=== PATIENT | female | born 1990 | race American Indian/Alaskan Native ===

== ENCOUNTER 2018-11-14 05:33 | Inpatient (IN) | payer MEDICAID ==
[2018-11-14] MEDS ORDERED: NITRATEST PAPER MC ONE (09:39)
--- NOTE | 2018-11-14 09:49 | Ultrasound Report ---
ULTRASOUND BIOPHYSICAL PROFILE ULTRASOUND OB LIMITED INDICATION: well being, evaluate amniotic fluid TECHNIQUE: Transabdominal ultrasound imaging. COMPARISON: None FINDINGS: breathing movement = 2 Gross body movement = 2 tone = 2 Qualitative amniotic fluid volume = 2 Total biophysical score = 8/8 Amniotic fluid index is 12.2 cm. Presentation is cephalic. heart rate is 130 beats per minute. IMPRESSION: biophysical profile equals 8/8. Signer Name: Ghulam Ford Jr, MD Signed: 11/14/2018 9:44 AM Workstation Name: [id number]
[2018-11-14 15:01] LABS: Basophils % (Auto) 0.2 % (0.0-1.8); Eosinophils % (Auto) 0.5 % (0.0-4.3); Hematocrit 28.3 % (30.3-42.9); Hemoglobin 8.9 gm/dl (10.1-14.3); Lymphocytes # (Auto) 1.3 K/mm3 (1.2-5.4); Lymphocytes % (Auto) 15.2 % (13.4-35.0); Mean Corpuscular HGB Conc 32 % (30-34); Mean Corpuscular Volume 70 fl (79-97); Monocytes # (Auto) 0.7 K/mm3 (0.0-0.8); Monocytes % (Auto) 8.1 % (0.0-7.3); Platelet Count 204 K/mm3 (140-440); Red Blood Count 4.01 M/mm3 (3.65-5.03); Red Cell Distribution Width 18.6 % (13.2-15.2)
[2018-11-14] MEDS ORDERED: MINERAL OIL PO PRN (16:16)
[2018-11-14] MEDS ORDERED: BRETHINE IVP PRN (16:16)
[2018-11-14] MEDS ORDERED: BRETHINE SUB-Q PRN (16:16)
[2018-11-14] MEDS ORDERED: CERVIDIL VG ONE (16:16)
[2018-11-14] MEDS ORDERED: XYLOCAINE 2% INFILTRATI ONE (16:16)
[2018-11-14] MEDS ORDERED: PITOCin/NS 20 UNIT/1000ML DRIP 20 UNITS/1,000 ML BAG IV SCH (17:00)
[2018-11-14] MEDS ORDERED: STADOL IV PRN (20:51)
[2018-11-14] MEDS: LACTATED RINGERS 1,000 ML IV SCH ×2 (21:32→23:48)
[2018-11-14] MEDS ORDERED: SUBLIMAZE ONE (23:50)
[2018-11-14] MEDS ORDERED: MARCAINE 0.25% INFILTRATI ONE (23:50)
[2018-11-15] MEDS ORDERED: NARCAN 2 MG/2 ML IV PRN (00:14)
--- NOTE | 2018-11-15 00:14 | Anesthesia Consultation ---
Anesthesia Consult and Med Hx Date of service: 11/15/18 - Airway Anesthetic Teeth Evaluation: Good ROM Head & Neck: Adequate Mental/Hyoid Distance: Adequate Mallampati Class: Class II Intubation Access Assessment: Good - Pulmonary Exam CTA: Yes - Cardiac Exam Cardiac Exam: RRR - Pre-Operative Health Status ASA Pre-Surgery Classification: ASA2, Emergency Proposed Anesthetic Plan: Epidural - Pulmonary Hx Asthma: No COPD: No Hx Pneumonia: No - Endocrine Hx End Stage Renal Disease: No - Other Systems Hx Alcohol Use: No
[2018-11-15] MEDS: fentaNYL-BUPIV 2 MCG/ML-0.125% 200 MCG/100 ML BAG EPIDURAL SCH ×2 (02:08→10:13)
[2018-11-15] MEDS: LACTATED RINGERS 1,000 ML IV SCH ×2 (03:45→08:15)
[2018-11-15] MEDS ORDERED: TYLENOL PO ONE (06:24)
[2018-11-15] MEDS ORDERED: ceFAZolin 2 GM in NACL 0.9% 100 ML IV ONE (06:25)
--- NOTE | 2018-11-15 08:10 | History and Physical Report ---
History of Present Illness Date of examination: 11/15/18 Date of admission: 11/14/18 13:44 Chief complaint: I think my water broke History of present illness: Patient is a 28 year old at 40.5 weeks who presents with the complaint of Leakage of fluid and contractions. Pt was found to be having irregular contractions but with only minimal dilation. As patient continued to contract, the decision was made to keep patient for augmentation of labor. Her course was uncomplicated. All labs are negative. She is GBS negative. Past History Past Medical History: no pertinent history Past Surgical History: no surgical history Social history: single - Obstetrical History Expected Date of Delivery: 11/09/18 Actual Gestation: 40 Week(s) 6 Day(s) : 1 Medications and Allergies Allergies Allergy/AdvReac Type Severity Reaction Status Date / Time amoxicillin Allergy Hives Verified 11/15/18 06:55 Active Meds: Active Medications Butorphanol Tartrate (Stadol) 2 mg IV Q2H PRN PRN Reason: Labor Pain Last Admin: 11/14/18 21:14 Dose: 2 mg Documented by: Ephedrine Sulfate (Ephedrine Sulfate) 10 mg IV Q2M PRN PRN Reason: Hypotension Ephedrine Sulfate (Ephedrine Sulfate) 10 mg IV Q2M PRN PRN Reason: Hypotension Oxytocin/Sodium Chloride (Pitocin/Ns 20 Unit/1000ml Drip) 20 units in 1,000 mls @ 125 mls/hr IV DIRECT SOUMYA Lactated Ringer's (Lactated Ringers) 1,000 mls @ 125 mls/hr IV DIRECT SOUMYA Last Admin: 11/15/18 03:45 Dose: 125 mls/hr Documented by: Fentanyl/Bupivacaine/Sodium Chlor (Fentanyl-Bupiv 2 Mcg/Ml-0.125%) 200 mcg in 100 mls @ 12 mls/hr EPIDURAL TITR SOUMYA; Protocol Last Admin: 11/15/18 02:08 Dose: 12 mls/hr Documented by: Clindamycin HCl (Cleocin 900 Mg/50 Ml) 900 mg in 50 mls @ 100 mls/hr IV ONCE ONE; Protocol Stop: 11/15/18 08:18 Mineral Oil (Mineral Oil) 30 ml PO QHS PRN PRN Reason: Constipation Naloxone HCl (Narcan 2 Mg/2 Ml) 0.2 mg IV Q5M PRN PRN Reason: Respiratory sedation Terbutaline Sulfate (Brethine) 0.25 mg SUB-Q ONCE PRN PRN Reason: Hyperstimulation/Hypertonicity Terbutaline Sulfate (Brethine) 0.25 mg IVP ONCE PRN PRN Reason: Hyperstimulation/Hypertonicity Review of Systems All systems: negative Genitourinary: leakage of fluid, contractions - Vital Signs Vital signs: Vital Signs Pulse BP 86 111/73 11/14/18 09:52 11/14/18 09:52 Temp Pulse Resp BP Pulse Ox 99.4 F 114 H 18 124/68 99 11/15/18 04:51 11/15/18 08:02 11/15/18 07:38 11/15/18 07:51 11/15/18 08:02 - Physical Exam Breasts: Positive: deferred Cardiovascular: Regular rate, Normal S1, Normal S2 Lungs: Positive: Clear to auscultation, Normal air movement Abdomen: Positive: normal appearance, soft, normal bowel sounds. Negative: distention, tenderness Genitourinary (Female): Positive: normal external genitalia, normal perenium Vulva: both: normal Vagina: Positive: normal moisture. Negative: discharge Cervix: Negative: lesion, discharge Uterus: Positive: normal size, normal contour Adnexa: both: normal Anus/Rectum: Positive: normal perianal skin, heme negative. Negative: rectal mass, hemorrhoids Extremities: Deep Tendon Reflex Grade: Normal +2 - Obstetrical FHR: auscultation normal Cervical Dilatation: 1 Cervical Effacement Percentage: 50 station: -3 Uterine Contraction Pattern: Irregular Uterine Contraction Intensity: Moderate Results Result Diagrams: 11/14/18 14:46 Abnormal lab results 11/14/18 Range/Units 14:46 Hgb 8.9 L (10.1-14.3) gm/dl Hct 28.3 L (30.3-42.9) % MCV 70 L (79-97) fl MCH 22 L (28-32) pg RDW 18.6 H (13.2-15.2) % [place] % (Auto) 8.1 H (0.0-7.3) % Seg Neutrophils % 76.0 H (40.0-70.0) % All other labs normal. Assessment and Plan IUP at 40.5 weeks with possible ROM. Admit for labor augmentation. Place cervidil. AROM when able. Anticipate .
[2018-11-15] MEDS ORDERED: CLEOCIN 900 MG/50 mL 900 MG/50 ML BAG IV ONE (09:00)
[2018-11-15] MEDS ORDERED: PITOCin/NS 30 UNIT/500ML 30,000 MILLIUNITS/500 ML BAG IV ONE ×2 (15:06→15:09)
[2018-11-15] MEDS ORDERED: NARCAN 0.4 MG/1 ML IV PRN ×2 (15:35→19:13)
[2018-11-15] MEDS ORDERED: ZOFRAN IV PRN ×2 (15:35→19:13)
[2018-11-15] MEDS ORDERED: DILAUDID IV PRN ×2 (15:35)
[2018-11-15] MEDS ORDERED: PHENERGAN PO PRN (15:35)
[2018-11-15] MEDS ORDERED: PHENERGAN PR PRN ×2 (15:35→19:13)
--- NOTE | 2018-11-15 15:35 | Anesthesia Day of Surgery ---
Anesthesia Day of Surgery - Day of Surgery Patient Examined: Yes Patient H&P Reviewed: Yes Patient is NPO: Yes
--- NOTE | 2018-11-15 15:39 | Event Note ---
Date: 11/15/18 Pt reached 10cm and commenced pushing. appears to be in OP position and despite good maternal pushing effort, there has been no descent of the head and caput has begun to develop. Discussed options with patient including c- section. I advised patient that vaginal delivery seems unlikely. Pt would prefer . Will sign consents and proceed with surgery.
[2018-11-15] MEDS ORDERED: BICITRA ONE (15:43)
[2018-11-15] MEDS ORDERED: CLEOCIN 900 MG/50 mL 900 MG/50 ML BAG IV NR (16:00)
[2018-11-15] MEDS ORDERED: PEPCID IV ONE (16:00)
[2018-11-15] MEDS ORDERED: REGLAN IV ONE (16:00)
[2018-11-15] MEDS ORDERED: SODIUM CHLORIDE FLUSH SYRINGE 10 ML IV NR ×2 (16:00→19:13)
[2018-11-15] MEDS ORDERED: BICITRA PO ONE (16:00)
[2018-11-15] MEDS ORDERED: PITOCin/NS 20 UNIT/1000ML DRIP 20 UNITS/1,000 ML BAG IV SCH ×2 (16:00→19:13)
[2018-11-15] MEDS ORDERED: LACTATED RINGERS 1,000 ML IV SCH (16:00)
[2018-11-15] MEDS ORDERED: TORADOL ONE (16:57)
[2018-11-15] MEDS ORDERED: ZOFRAN ONE (16:57)
[2018-11-15] MEDS ORDERED: BENADRYL ONE (16:57)
[2018-11-15] MEDS ORDERED: XYLOCAINE 2%/ EPI 1:200,000 INFILTRATI ONE (16:58)
[2018-11-15] MEDS ORDERED: DILAUDID ONE (17:16)
--- NOTE | 2018-11-15 17:26 | Procedure Note ---
OB Delivery Note - Delivery Date of Delivery: 11/15/18 Surgeon: AMRGUERITE SILVA Equipment Maintenance Tech: MIRELLA COYNE Estimated blood loss: 1000cc - Section Preop diagnosis: arrest of descent Postop diagnosis: same (with persistent op) section procedure: primary low transverse Disposition: PACU Narrative: see op report - A at 1 minute: 9 at 5 minutes: 9 Gender: Male (4504g 9 pounds 15 ounces)
--- NOTE | 2018-11-15 17:30 | Operative Report ---
Operative Report Operative Report: The operative report for patient Elise Lane Date of service 11/15/2018 Preoperative diagnosis: Intrauterine at 40-6/7 weeks 2. Arrest of descent Postoperative diagnosis: Same with persistent op position Procedure: Primary low transverse section Surgeon: Dr. Maria Del Carmen Rome EBL: 1000 mL Urine output: 100 mL blood-tinged prior to surgical procedure IV fluids: 1200 mL LR Findings: Viable male in the vertex occiput posterior position. Weight 9 lbs. 15 oz. 4504 g Apgars 9 and 9. Otherwise normal pelvic anatomy Specimens: None Complications: None Procedure: The patient was admitted to the OR with IV running and in place. She was properly identified as herself. Her spinal had been placed in the room and she was already under the effects of anesthesia upon entry into the OR. She was placed in the dorsal supine position with a leftward tilt. A Holder catheter was inserted. She was then prepped and draped in the normal sterile fashion. An Allis test was used to confirm adequate anesthesia. Once confirmed, the incision was made with the scalpel and carried to the underlying fascia using the scalpel and the Bovie. The fascia was incised in the midline and incision was extended bilaterally using the curved Squires scissors. The fascia was then dissected from the underlying rectus muscles in a series of sharp and blunt dissection using the Squires scissors. Muscles were in the in the midline sharply using Metzenbaum scissors and the peritoneum was entered into bluntly using the surgeon's fingers. A bladder blade was then placed into the incision to protect the bladder. Following this the bladder flap was created. Hysterotomy incision was then made in the scalpel. Upon uterine entry, the amniotic sac was ruptured for clear fluid. The was then delivered in the occiput posterior position. His mouth and nose were suctioned on the field. The cord was clamped and cut and he was handed to the waiting NICU personnel. The uterus was then exteriorized and cleared of all clots and debris. The hysterotomy incision was then closed in a running locked fashion using 0 Vicryl. The abdomen was then copiously irrigated with warm normal saline. Following this the uterus was replaced into the abdominal cavity. At this point the muscles were reapproximated in the midline using individual sutures of 0 Vicryl. Following this the fascia was closed in a running fashion using 0 Vicryl. Tissue was then copiously irrigated. . Skin was closed in a running fashion using 3-0 Monocryl. The sponge lap needle and instrument counts were correct 2. The patient tolerated the procedure well. She was taken to recovery in stable condition.
--- NOTE | 2018-11-15 17:31 | Post Anesthesia Evaluation ---
- Post Anesthesia Evaluation Patient Participated: Yes Airway Patent: Yes Stable Respiratory Function: Yes Nausea/Vomiting: No Temp > 96.8F: No Pain Manageable: Yes Adequeate Hydration: Yes Anesthesia Complications: No Block Receding Appropriately: Yes Patient on Ventilator: No
[2018-11-15] MEDS ORDERED: LANSINOH TP PRN (19:13)
[2018-11-15] MEDS ORDERED: IBUPROFEN PO PRN (19:13)
[2018-11-15] MEDS ORDERED: TUCKS PAD TP PRN (19:13)
[2018-11-15] MEDS ORDERED: MYLICON PO PRN (19:13)
[2018-11-15] MEDS ORDERED: D5LR 1,000 ML IV SCH (19:13)
[2018-11-15] MEDS ORDERED: MORPHINE IV PRN (19:13)
[2018-11-15] MEDS: TORADOL IV PRN (23:06)
[2018-11-16] MEDS: TORADOL IV PRN ×2 (05:19→16:46)
[2018-11-16 06:18] LABS: Hematocrit 22.4 % (30.3-42.9); Hemoglobin 6.8 gm/dl (10.1-14.3)
[2018-11-16] MEDS ORDERED: D5LR 1,000 ML IV SCH (07:00)
[2018-11-16] MEDS: PRENATAL VITAMIN PO SCH (10:37)
[2018-11-16] MEDS: PERCOCET 5/325 PO PRN ×2 (10:37→20:51)
[2018-11-16] MEDS: FEOSOL PO SCH (10:37)
--- NOTE | 2018-11-16 16:15 | Progress Note ---
Assessment and Plan PPD 1 s/p primary . Doing well. Encourage ambulation. Continue routine care.Will begin iron for hgb drop. Subjective - Subjective Date of service: 11/16/18 Principal diagnosis: s/p Interval history: Patient is a 28 year old at 40.5 weeks who presents with the complaint of Leakage of fluid and contractions. Pt was found to be having irregular contractions but with only minimal dilation. As patient continued to contract, the decision was made to keep patient for augmentation of labor. Her course was uncomplicated. All labs are negative. She is GBS negative. Patient reports: appetite normal, voiding normally, pain well controlled, ambulating normally : doing well Objective - Vital Signs Latest vital signs: Vital Signs Temp Pulse Resp BP BP Pulse Ox 11/16/18 11:58 99.0 F 106 H 18 104/59 96 11/16/18 07:20 98.6 F 117 H 18 100/59 97 11/16/18 04:54 99.7 F H 123 H 20 114/63 100 11/16/18 00:47 98.7 F 120 H 20 103/59 97 11/15/18 18:45 99 F 82 18 145/84 98 11/15/18 18:06 91 H 17 148/66 100 11/15/18 17:51 116 H 20 120/60 100 11/15/18 17:36 108 H 19 121/72 100 11/15/18 17:31 106 H 17 126/64 100 11/15/18 17:26 110 H 17 122/62 100 11/15/18 17:21 98.7 F 113 H 18 118/60 100 Intake and Output 11/16/18 11/16/18 11/16/18 06:59 14:59 22:59 Intake Total 240 240 Output Total 800 400 Balance -560 -160 Intake: Oral 240 240 Output: Urine 800 400 Indwelling Catheter 800 400 Other: Total, Intake Amount 120 240 Total, Output Amount 300 400 - Exam Breasts: Present: deferred Cardiovascular: Present: Regular rate, Normal S1, Normal S2 Lungs: Present: Clear to auscultation, Normal air movement Abdomen: Present: normal appearance, soft, normal bowel sounds Uterus: Present: normal Extremities: Present: normal Deep Tendon Reflex Grade: Normal +2 Incision: Present: normal, intact, dressed - Labs Labs: Abnormal lab results 11/16/18 Range/Units 05:51 Hgb 6.8 L (10.1-14.3) gm/dl Hct 22.4 L (30.3-42.9) %
[2018-11-17] MEDS: PERCOCET 5/325 PO PRN ×2 (03:45→21:45)
[2018-11-17] MEDS: MILK OF MAGNESIA PO PRN (05:01)
[2018-11-17] MEDS: FEOSOL PO SCH (10:43)
[2018-11-17] MEDS: PRENATAL VITAMIN PO SCH (10:43)
--- NOTE | 2018-11-17 20:08 | Progress Note ---
Assessment and Plan POD 2 s/p ltcs. Doing well. Pt has some swelling but not out of range. Plan for discharge on tomorrow. Subjective - Subjective Date of service: 11/17/18 Principal diagnosis: s/p Interval history: Patient is a 28 year old at 40.5 weeks who presents with the complaint of Leakage of fluid and contractions. Pt was found to be having irregular contractions but with only minimal dilation. As patient continued to contract, the decision was made to keep patient for augmentation of labor. Her course was uncomplicated. All labs are negative. She is GBS negative. Patient reports: appetite normal, voiding normally, pain well controlled, ambulating normally : doing well Objective - Vital Signs Latest vital signs: Vital Signs Temp Pulse Resp BP BP Pulse Ox 11/17/18 16:48 98.0 F 98 H 18 108/52 11/17/18 08:11 98.0 F 102 H 18 109/61 99 11/17/18 00:17 98.5 F 99 H 20 108/65 98 Intake and Output 11/17/18 11/17/18 11/17/18 06:59 14:59 22:59 Intake Total 360 480 Balance 360 480 Intake: Oral 480 Intake, Free Water 360 Other: Total, Intake Amount 480 # Voids Void 1 - Exam Breasts: Present: deferred Cardiovascular: Present: Regular rate, Normal S1, Normal S2 Lungs: Present: Clear to auscultation, Normal air movement Abdomen: Present: normal appearance, soft Uterus: Present: normal, firm Extremities: Present: normal, edema (2+) Incision: Present: normal, dry, intact
--- NOTE | 2018-11-17 20:10 | Discharge Summary ---
Providers - Providers Date of Admission: 11/14/18 13:44 Date of discharge: 11/18/18 Attending physician: MARGUERITE SILVA Primary care physician: MARGUERITE SILVA Hospitalization Reason for admission: active labor Delivery: Procedure: primary low transverse Procedure details: see op report Incision: normal, dry, intact Discharge diagnosis: IUP at term delivered [place] baby: male Hospital course: unremarkable Condition at discharge: Good Disposition: DC-01 TO HOME OR SELFCARE Plan - Discharge Medications Prescriptions: Ferrous Sulfate [Feosol 325 MG tab] 325 mg PO BID #60 tablet Ibuprofen [Motrin] 800 mg PO Q8HR PRN #40 tablet PRN Reason: Pain, Moderate (4-6) oxyCODONE /ACETAMINOPHEN [Percocet 5/325] 1 tab PO Q4HR #40 tab - Provider Discharge Summary Activity: routine, no sex for 6 weeks, no heavy lifting 4 weeks, no strenuous exercise Diet: routine Instructions: routine Additional instructions: [] Smoking cessation referral if applicable(refer to patient education folder for contact #) [] Refer to [facility] Booklet Call your doctor immediately for: * Fever > 100.5 * Heavy vaginal bleeding ( >1 pad per hour) * Severe persistent headache * Shortness of breath * Reddened, hot, painful area to leg or breast * Drainage or odor from incision. * Keep incision clean and dry at all times and follow doctor's instructions reg arding bathing/showering - Follow up plan Follow up: MARGUERITE SILVA MD [Primary Care Provider] - 14 Days
[2018-11-18 09:11] VITALS: BP 112/59
[2018-11-18] MEDS: FEOSOL PO SCH (09:15)
[2018-11-18] MEDS: PERCOCET 5/325 PO PRN (09:15)
[2018-11-18] MEDS: PRENATAL VITAMIN PO SCH (09:15)
[2018-11-18] MEDS: MILK OF MAGNESIA PO PRN (10:22)
== END 2018-11-18 13:40 | disposition home or self-care (01) | DRG 765 ==
LOC: TRG 05:33 → LD 13:44 → OB 11-15 19:12
PROVIDERS: ADMIT Obstetrics & Gynecology; ATTEND Obstetrics & Gynecology
PROC: 10D00Z1 Extraction of Products of Conception, Low, Open Approach (ICD-10-PCS; principal; 2018-11-15)
DX: O62.1 Secondary uterine inertia (principal); D62 Acute posthemorrhagic anemia; Z3A.40 40 weeks gestation of pregnancy; Z37.0 Single live birth; Z88.1 Allergy status to other antibiotic agents; O99.02 Anemia complicating childbirth
CPT/HCPCS: 36415; 59200; 76815; 76819; 85014; 85018; 85025; 86592; 86850; 86900; 86901; G0378; A6250; J0595; J0690; J1170; J1200; J1885; J2405; J2590; J2765; J3010; J7120; J7121